=== PATIENT | female | born 1970 | race Caucasian/White ===

== ENCOUNTER 2021-06-17 13:43 | Emergency (ER) | payer MEDICAID ==
[~2021-06-17] VITALS: Ht 162.6 cm; Wt 78.0 kg
[2021-06-17 13:53] VITALS: BP 159/84
--- NOTE | 2021-06-17 14:22 | NUR ---
Dr. Brown at bedside evaluating patient.
--- NOTE | 2021-06-17 14:59 | NUR ---
50 y/o female c/o blood in stool and throwing up blood x 3 days. Patient describes dark, tarry stools and bright red vomit. Patient also reports abdominal pain, back pain. 1010 pain with a burning feeling. Medical History: HTN, pre-dm, gastritis, stroke (2020) Meds: aspirin, losartan NKDA
--- NOTE | 2021-06-17 15:00 | NUR ---
UA, blood sample walked to lab and handed to CPT Valentina.
[2021-06-17 15:04] LABS: BASOPHILS # (AUTO) 0.1 K/uL (0.00-0.22); BASOPHILS % (AUTO) 0.8 % (0.0-2.0); EOSINOPHILS # (AUTO) 0.1 K/uL (0-0.4); HEMATOCRIT 41.9 % (36-48); HEMOGLOBIN 14.2 g/dL (12.0-16.0); LYMPHOCYTES # (AUTO) 1.5 K/uL (2.5-16.5); LYMPHOCYTES % (AUTO) 21.1 % (20.5-51.1); MEAN CORPUSCULAR HEMOGLOBIN 30 pg (27-31); MEAN CORPUSCULAR HGB CONC 34 g/dL (33-37); MEAN CORPUSCULAR VOLUME 87.1 fL (80-94); MONOCYTES # (AUTO) 0.4 K/uL (0.8-1.0); MONOCYTES % (AUTO) 5.7 % (1.7-9.3); NEUTROPHILS % (AUTO) 71.4 % (42.2-75.2); PLATELET COUNT (AUTO) 212 K/uL (140-450); RED BLOOD CELL COUNT(AUTO) 4.81 MIL/uL (4.20-5.40); RED CELL DISTRIBUTION WIDTH 13.8 % (11.6-13.7)
[2021-06-17] MEDS: MORPHINE SULFATE 4 MG/ML SYR IVP ONE (15:08)
[2021-06-17] MEDS: ONDANSETRON 4 MG/2 ML VIAL IVP ONE (15:08)
--- NOTE | 2021-06-17 15:22 | NUR ---
Pt transoprted to CT by rashid.
--- NOTE | 2021-06-17 15:34 | NUR ---
Patient returned from CT and placed back onto monitoring coordinator.
--- NOTE | 2021-06-17 15:36 | NUR ---
Pt states + relief to pain 10/09. States "bitter taste and foul breath" at this time.
[2021-06-17 15:37] LABS: PROTHROMBIN TIME 10.8 secs (10.8-13.4)
[2021-06-17 15:38] LABS: ALBUMIN 4.1 g/dL (3.4-5.0); ANION GAP 13.8 (8-16); CARBON DIOXIDE 28.5 mmol/L (21-32); CREATININE 0.8 mg/dL (0.6-1.3); POTASSIUM 3.3 mmol/L (3.5-5.1); TOTAL BILIRUBIN 0.6 mg/dL (0.0-1.0)
[2021-06-17] MEDS ORDERED: BISM262C53 PO ×2 (16:29→20:19)
[2021-06-17] MEDS ORDERED: LACT500C2 PO ×2 (16:29→20:19)
[2021-06-17] MEDS ORDERED: BEN10 PO ×2 (16:29→20:19)
--- NOTE | 2021-06-17 16:41 | NUR ---
Dr. Brown is reevaluating pt at bedside
[2021-06-17] MEDS: SODIUM PHOS / POTASSIUM PHOS 1 PKT PDR PO STA (16:48)
[2021-06-17] MEDS: FAMOTIDINE 20 MG/2 ML VIAL IVP ONE (16:48)
[2021-06-17] MEDS: PANTOPRAZOLE 40 MG INJ VIAL IVP ONE (16:49)
--- NOTE | 2021-06-17 17:04 | NUR ---
Chart checked and completed. The patient's care was reviewed and supervised by Milton Anthony, RN, RN.
[2021-06-17 17:05] VITALS: BP 122/72
--- NOTE | 2021-06-17 17:06 | NUR ---
Patient discharged with v/s stable. Written and verbal after care instructions given. Patient alert, oriented and verbalized understanding of instructions. Ambulatory with steady gait. All questions addressed prior to discharge. ID band removed. Patient advised to follow up with PMD. Rx of Bentyl, Pepto-Bismol To Go, and Acidophillus given. Opportunity to ask questions provided and answered.
== END 2021-06-17 17:04 | disposition home or self-care (01) ==
LOC: MED 13:43
DX: K52.9 Noninfective gastroenteritis and colitis, unspecified (principal); R10.9 Unspecified abdominal pain; E87.6 Hypokalemia; R94.31 Abnormal electrocardiogram [ECG] [EKG]; K76.0 Fatty (change of) liver, not elsewhere classified; I10 Essential (primary) hypertension; Z79.899 Other long term (current) drug therapy
CPT/HCPCS: 36415; 71045; 74176; 80053; 81002; 81025; 82150; 83690; 84484; 85025; 85610; 85730; 96374; 96375; 99285; C9113; J2270; J2405; J3490; 93005

== ENCOUNTER 2021-06-29 20:37 | Emergency (ER) | payer MEDICAID ==
[~2021-06-29] VITALS: Ht 160 cm; Wt 79.6 kg
[~2021-06-29 20:37] MED LIST: BEN10 PO; BISM262C53 PO; LACT500C2 PO
[2021-06-29 21:12] VITALS: BP 160/103
[2021-06-29 22:44] LABS: APPEARANCE,URINE CLEAR (CLEAR); BILIRUBIN,URINE NEGATIVE (NEGATIVE); BLOOD, URINE NEGATIVE (NEGATIVE); COLOR,URINE YELLOW (YELLOW); LEUKOCYTE ESTERASE ,URINE TRACE (NEGATIVE); NITRITE, URINE NEGATIVE (NEGATIVE); UGLUCOSE NEGATIVE (NEGATIVE)
[2021-06-29 22:59] LABS: RBC,URINE 0-5 /HPF (0-5)
[2021-06-29] MEDS ORDERED: CEPH-588 PO (23:26)
[2021-06-29 23:37] VITALS: BP 135/76
== END 2021-06-29 23:37 | disposition home or self-care (01) ==
LOC: MED 20:37
DX: N39.0 Urinary tract infection, site not specified (principal); M79.604 Pain in right leg; M79.605 Pain in left leg; I10 Essential (primary) hypertension; Z79.899 Other long term (current) drug therapy; Z90.49 Acquired absence of other specified parts of digestive tract; Z86.73 Personal history of transient ischemic attack (TIA), and cerebral infarction without residual deficits
CPT/HCPCS: 81001; 81025; 87086; 99283

== ENCOUNTER 2021-10-15 23:16 | Emergency (ER) | payer MEDICAID, OTHER ==
[~2021-10-15] VITALS: Ht 160 cm; Wt 74.4 kg
[~2021-10-15 23:16] MED LIST changes: +CEPH-588 PO
[2021-10-15 23:28] VITALS: BP 141/77
--- NOTE | 2021-10-15 23:40 | NUR ---
51 Y/O FEMALE BIBS FROM HOME, C/O LEFT FLANK BURNING X1 WK. DENIES PAIN, ONLY "BURNING" WHICH RADIATES TO HER BACK. PT DENIES V/D, SOB, COUGH, OR FEVER. PT HAS LOSS OF APETITE AND DIZINESS. A/OX4, GCS-15; AMBULATORY W/O ASSISTANCE; UNLABORED BREATHING AND SPEAKING IN FULL SENTENCES. PT SPEAKS SPANOSH ONLY HX: HTN, HLD, COLITIS NKA
[2021-10-16] MEDS ORDERED: DICYCLOMINE HCL LIQUID 20 MG, ALUMINUM HYD/MAG/SIMETHICONE 30 ML, LIDOCAINE VISCOUS 2% ... PO ONE ×3 (01:15)
[2021-10-16] MEDS ORDERED: ALUMINUM HYD/MAG/SIMETHICONE 30 ML UDC ONE (01:18)
[2021-10-16] MEDS ORDERED: DICYCLOMINE HCL LIQUID 10 MG/5 ML UDC ONE (01:25)
[2021-10-16 02:20] LABS: BASOPHILS # (AUTO) 0.1 K/uL (0.00-0.22); BASOPHILS % (AUTO) 0.9 % (0.0-2.0); EOSINOPHILS # (AUTO) 0.1 K/uL (0-0.4); EOSINOPHILS % (AUTO) 0.8 % (0.0-4.0); HEMATOCRIT 40.6 % (36-48); HEMOGLOBIN 13.5 g/dL (12.0-16.0); LYMPHOCYTES # (AUTO) 2.4 K/uL (2.5-16.5); LYMPHOCYTES % (AUTO) 28.3 % (20.5-51.1); MEAN CORPUSCULAR HEMOGLOBIN 29 pg (27-31); MEAN CORPUSCULAR HGB CONC 33 g/dL (33-37); MEAN CORPUSCULAR VOLUME 86.3 fL (80-94); MONOCYTES # (AUTO) 0.5 K/uL (0.8-1.0); MONOCYTES % (AUTO) 5.4 % (1.7-9.3); NEUTROPHILS # (AUTO) 5.5 K/uL (1.8-7.7); NEUTROPHILS % (AUTO) 64.6 % (42.2-75.2); PLATELET COUNT (AUTO) 235 K/uL (140-450); RED BLOOD CELL COUNT(AUTO) 4.71 MIL/uL (4.20-5.40); RED CELL DISTRIBUTION WIDTH 13.6 % (11.6-13.7); WHITE BLOOD COUNT (AUTO) 8.5 K/uL (4.8-10.8)
[2021-10-16 02:31] LABS: ANION GAP 15.9 (8-16); CREATININE 0.7 mg/dL (0.6-1.3); POTASSIUM 3.9 mmol/L (3.5-5.1)
--- NOTE | 2021-10-16 04:40 | NUR ---
PATIENT EVALED AND DC BY FIDEL ZARCO. VERBALIZED UNDERSTANDING OF MEDICAL DIAGNOSIS. AOX4. PATIENT AMBULATORY WITH STEADY GAIT.
[2021-10-16 04:41] VITALS: BP 130/86
== END 2021-10-16 04:30 | disposition home or self-care (01) ==
LOC: MED 23:16
DX: K21.9 Gastro-esophageal reflux disease without esophagitis (principal); R07.9 Chest pain, unspecified; I10 Essential (primary) hypertension; E78.5 Hyperlipidemia, unspecified; Z86.73 Personal history of transient ischemic attack (TIA), and cerebral infarction without residual deficits
CPT/HCPCS: 36415; 71045; 80048; 84484; 85025; 85379; 93005; 99285; Q0092

== ENCOUNTER 2021-11-03 19:24 | Emergency (ER) | payer OTHER ==
[~2021-11-03] VITALS: Ht 160 cm; Wt 76.2 kg
--- NOTE | 2021-11-03 19:35 | NUR ---
CALLED TO TRIAGE, NO ANSWER
--- NOTE | 2021-11-03 19:50 | NUR ---
CALLED TO TRIAGE, NO ANSWER
[2021-11-03 19:59] VITALS: BP 134/68
--- NOTE | 2021-11-03 20:04 | NUR ---
TO LOBBY FOLLOWING TRIAGE
--- NOTE | 2021-11-03 21:32 | NUR ---
CONFIRMED WITH KYLE FROM RAD, PT NOT IN US.
--- NOTE | 2021-11-03 21:39 | NUR ---
WALKED DOWN TO US, PT IS WITH [employer] TECH.
--- NOTE | 2021-11-03 21:40 | NUR ---
FAMILY MADE AWARE THAT PT IS WITH US.
--- NOTE | 2021-11-03 21:45 | NUR ---
PT TAKEN TO BED 6 FROM ULTRASOUND
[2021-11-03 22:44] LABS: BASOPHILS # (AUTO) 0.1 K/uL (0.00-0.22); BASOPHILS % (AUTO) 0.8 % (0.0-2.0); EOSINOPHILS # (AUTO) 0.1 K/uL (0-0.4); EOSINOPHILS % (AUTO) 0.6 % (0.0-4.0); HEMATOCRIT 42.3 % (36-48); LYMPHOCYTES % (AUTO) 28.6 % (20.5-51.1); MEAN CORPUSCULAR HEMOGLOBIN 29 pg (27-31); MEAN CORPUSCULAR HGB CONC 33 g/dL (33-37); MEAN CORPUSCULAR VOLUME 86.6 fL (80-94); MONOCYTES # (AUTO) 0.6 K/uL (0.8-1.0); MONOCYTES % (AUTO) 5.9 % (1.7-9.3); NEUTROPHILS # (AUTO) 6.8 K/uL (1.8-7.7); NEUTROPHILS % (AUTO) 64.1 % (42.2-75.2); PLATELET COUNT (AUTO) 240 K/uL (140-450); RED BLOOD CELL COUNT(AUTO) 4.88 MIL/uL (4.20-5.40); RED CELL DISTRIBUTION WIDTH 13.6 % (11.6-13.7); WHITE BLOOD COUNT (AUTO) 10.5 K/uL (4.8-10.8)
--- NOTE | 2021-11-03 23:00 | NUR ---
51 Y/O F BIB SELF FOR ABDOMINAL PAIN X TODAY . PT STATES SHE HAS HAD CHRONIC ABD PAIN FOR 4 MONTHS. HER PCP RECOMMENDED HER FOR SURGERY X4 MONTHS AGO FOR GALLBLADDER STONE REMOVAL. PT STATES BURNING PAIN 10/09. PT DENIES N/V/F/D/COUGH/ CHEST PAIN. PT IS A&OX4 WITH SOME CONFUSION TO HER STORY, USED EDUCATION AND OUTREACH COORDINATOR SERVICE [id number] , MELL. PT IS AMBULATORY AND VSS.
[2021-11-03 23:13] LABS: APPEARANCE,URINE CLEAR (CLEAR); BILIRUBIN,URINE NEGATIVE (NEGATIVE); BLOOD, URINE NEGATIVE (NEGATIVE); COLOR,URINE YELLOW (YELLOW); LEUKOCYTE ESTERASE ,URINE NEGATIVE (NEGATIVE); NITRITE, URINE NEGATIVE (NEGATIVE); UGLUCOSE NEGATIVE (NEGATIVE)
--- NOTE | 2021-11-03 23:13 | NUR ---
URINE TAKEN TO LAB
[2021-11-03 23:17] LABS: ALBUMIN 3.8 g/dL (3.4-5.0); CARBON DIOXIDE 26.8 mmol/L (21-32); CREATININE 0.8 mg/dL (0.6-1.3); POTASSIUM 3.8 mmol/L (3.5-5.1); TOTAL BILIRUBIN 0.5 mg/dL (0.0-1.0)
[2021-11-04 00:16] VITALS: BP 138/68
--- NOTE | 2021-11-04 00:16 | NUR ---
Patient discharged with v/s stable. Written and verbal after care instructions given and explained. Patient verbalized understanding. Ambulatory with steady gait. All questions addressed prior to discharge. Advised to follow up with PMD.
--- NOTE | 2021-11-04 00:39 | NUR ---
The patient's care was reviewed and supervised by Ani Lui RN.
== END 2021-11-04 00:16 | disposition home or self-care (01) ==
LOC: MED 19:24
DX: R10.9 Unspecified abdominal pain (principal); I10 Essential (primary) hypertension; K21.9 Gastro-esophageal reflux disease without esophagitis; F41.9 Anxiety disorder, unspecified; F32.A Depression, unspecified
CPT/HCPCS: 36415; 76705; 80053; 81003; 83690; 84702; 85025; 99284; Q0092

== ENCOUNTER 2022-06-25 12:12 | Emergency (ER) | payer OTHER ==
[~2022-06-25] VITALS: Ht 160 cm; Wt 79.4 kg
[2022-06-25 12:18] VITALS: BP 139/92
[2022-06-25 13:06] LABS: BASOPHILS # (AUTO) 0.1 K/uL (0.00-0.22); BASOPHILS % (AUTO) 0.8 % (0.0-2.0); EOSINOPHILS # (AUTO) 0.1 K/uL (0-0.4); EOSINOPHILS % (AUTO) 0.7 % (0.0-4.0); HEMATOCRIT 42.4 % (36-48); HEMOGLOBIN 14.3 g/dL (12.0-16.0); LYMPHOCYTES # (AUTO) 2.2 K/uL (2.5-16.5); MEAN CORPUSCULAR HEMOGLOBIN 29 pg (27-31); MEAN CORPUSCULAR HGB CONC 34 g/dL (33-37); MEAN CORPUSCULAR VOLUME 85.5 fL (80-94); MONOCYTES # (AUTO) 0.5 K/uL (0.8-1.0); MONOCYTES % (AUTO) 6.5 % (1.7-9.3); NEUTROPHILS # (AUTO) 4.5 K/uL (1.8-7.7); PLATELET COUNT (AUTO) 215 K/uL (140-450); RED BLOOD CELL COUNT(AUTO) 4.96 MIL/uL (4.20-5.40); RED CELL DISTRIBUTION WIDTH 13.3 % (11.6-13.7); WHITE BLOOD COUNT (AUTO) 7.3 K/uL (4.8-10.8)
[2022-06-25 13:17] LABS: ANION GAP 14.4 (8-16); CARBON DIOXIDE 25.5 mmol/L (21-32); CREATININE 0.8 mg/dL (0.6-1.3); POTASSIUM 3.9 mmol/L (3.5-5.1)
[2022-06-25] MEDS ORDERED: DICYCLOMINE HCL LIQUID 20 MG, ALUMINUM HYD/MAG/SIMETHICONE 30 ML, LIDOCAINE VISCOUS 2% ... PO ONE ×3 (14:30)
[2022-06-25] MEDS ORDERED: OMEP40EC24 PO (14:42)
[2022-06-25 15:21] VITALS: BP 122/76
--- NOTE | 2022-06-25 15:31 | NUR ---
Patient discharged with v/s stable. Written and verbal after care instructions given and explained. Patient alert, oriented and verbalized understanding of instructions. Ambulatory with steady gait. All questions addressed prior to discharge. ID band removed. Patient advised to follow up with PMD. Rx of PRILOSEC given. Patient educated on indication of medication including possible reaction and side effects. Opportunity to ask questions provided and answered.
== END 2022-06-25 15:21 | disposition home or self-care (01) ==
LOC: MED 12:12
DX: R10.13 Epigastric pain (principal); K21.9 Gastro-esophageal reflux disease without esophagitis; I10 Essential (primary) hypertension; Z86.73 Personal history of transient ischemic attack (TIA), and cerebral infarction without residual deficits; Z79.899 Other long term (current) drug therapy
CPT/HCPCS: 36415; 80048; 85025; 99283